=== PATIENT | female | born 1930 | race Caucasian/White ===

== ENCOUNTER 2016-11-05 12:12 | Emergency (ER) | payer OTHER, MEDICARE ==
[~2016-11-05] VITALS: Ht 152.4 cm; Wt 36.3 kg
[~2016-11-05 12:12] MED LIST: AMIODARONE HCL200 MG PO; AZITHROMYCIN250 MG PO; CARDIZEM CD240 MG PO; CORDARONE 200M200 MG PO; DIGOX0.125 MG PO; DILTIAZEM PO; DOCUSATE SODIU100 MG PO; DONEPEZIL HYDROC5 MG PO; EDECRIN 25 MG T25 MG PO; FUROSEMIDE40 MG PO; HYDROXYZINE HCL25 MG PO; HYDROXYZINE HYD25 MG PO; LANOXIN-DIGO0.125 MG PO; LASIX40 MG PO; LISINOPRIL10 MG PO; LOPRESSOR 12.12.5 MG PO; MELATONIN3 MG PO; METOPROLOL TAR100 MG PO; MIRALAX17 GM PO; MONISTAT 72% VAG; POTASSIUM CHLO10 ME1 PO; POTASSIUM CHLO20 ME1 PO; RIVA15T PO; ROZEREM8 MG PO; TYLENOL #31 TAB PO; TYLENOL XSTR500 MG PO; XARELTO15 MG PO; XARELTO20 MG PO; ZITHROMAX Z-PA250 M1 PO
--- NOTE | 2016-11-05 12:17 | ED GI/GU/ABDOMINAL COMPLAINT ---
History of Present Illness General Chief Complaint: Neck/Upper Back Pain/Injury Stated Complaint: BIBA NVD Source: patient, old records, EMS Exam Limitations: clinical condition Vital Signs & Intake/Output Vital Signs & Intake/Output Vital Signs Date Time Temp Pulse Resp B/P B/P Pulse O2 O2 Flow FiO2 Mean Ox Delivery Rate 11/05 1732 97.7 119 16 159/64 96 Room Air 11/05 1636 98.0 108 17 136/82 96 Room Air 11/05 1614 97.7 117 18 183/114 11/05 1606 97.7 117 18 183/114 11/05 1438 84 11/05 1325 97.7 132 16 148/83 97 Room Air 11/05 1218 98 11/05 1217 97.8 130 16 137/91 97 Room Air Allergies Coded Allergies: ampicillin (UNKNOWN - PER PT SON DOES NOT KNOW 07/29/15) Reconcile Medications Acetaminophen (Tylenol Xstr) 500 MG TAB 2 TAB PO PRN PAIN (Reported) Digoxin (Digox) 0.125 MG TAB 1 TAB PO DAILY RAPID AFIB Diltiazem Cd (Cardizem 300 MG Cd) 300 MG CAP 1 TAB PO DAILY HEART RATE DONEPEZIL HCL (Donepezil Hydrochloride) 5 MG TAB 1 TAB PO DAILY memory ( Reported) Furosemide 40 MG TAB 1 TAB PO BID DIURETIC (Reported) Lisinopril 10 MG TABLET 10 MG PO DAILY BP HOLD THIS MED IF SYSTOLIC BP LESS THAN 90 Melatonin 3 MG TAB 1 TAB PO PRN SLEEP (Reported) Metoprolol Tartrate 100 MG TAB 1 TAB PO BID HEART/BP (Reported) Potassium Chloride 10 MEQ TABLET.ER 2 TAB PO DAILY SUPPLEMENT Ramelteon (Rozerem) 8 MG TAB 1 TAB PO QHS insomnia Rivaroxaban (Xarelto) 15 MG TAB 15 MG PO 1700 A-FIB Triage Nurses Notes Reviewed? yes ? N Is pt currently ? No Onset: Abrupt Duration: day(s): (FEW) Timing: single episode today Activities at Onset: none No Modifying Factors: none Associated Symptoms: DIZZINESS HPI: 86 year old female with history of rapid afib presents with weakness, dizziness and unstable gait Reports near fall at home. Uses a walker at home. Complains of frequent urination. She states she called EMS because she could not wait for her son to wake up at home. SHe reports he likes to sleep in. No chest pain or shortness of breath. She did not take her medications at home. Denies feeling any palpitations. Past History Medical History Any Pertinent Medical History? 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 No Review of Systems Review of Systems Constitutional: Denies: chills, fever. EENTM: Reports: no symptoms. Respiratory: Denies: cough, short of breath, sputum production. Cardiovascular: Denies: chest pain, palpitations, peripheral edema. GI: Denies: abdominal pain, nausea, vomiting. Genitourinary: Reports: no symptoms. Musculoskeletal: Reports: no symptoms. Skin: Reports: no symptoms. Neurological/Psychological: Reports: see HPI (DIZZINESS, ATAXIA). Hematologic/Endocrine: Denies: bruising, bleeding, polyuria, polydipsia. Immunologic/Allergic: Denies: splenectomy. All Other Systems: Reviewed and Negative Physical Exam Physical Exam General Appearance: alert, awake, mild distress, thin Head: atraumatic, normal appearance Eyes: Bilateral: normal appearance, PERRL, EOMI. Ears, Nose, Throat, Mouth: hearing grossly normal, moist mucous membrane Neck: normal inspection, supple, full range of motion Respiratory: normal breath sounds, chest non-tender, no respiratory distress Cardiovascular: tachycardia, irregularly irregular Peripheral Pulses: 2+ radial (R), 2+ radial (L) Gastrointestinal: normal bowel sounds, soft, non-tender Back: normal inspection, normal range of motion Extremities: normal range of motion Neurologic/Psych: no motor/sensory deficits, awake, alert, oriented x 3, normal mood/affect Skin: intact, normal color, warm/dry Core Measures ACS in differential dx? Yes ASA ordered for poss ACS? No-ACS ruled out Severe Sepsis Present: No Septic Shock Present: No Progress Differential Diagnosis: RAPID AFIB, ANEMIA, ACS, DEHYDRATION, ELECTROLYTE DISTURBANCE, CVA, TIA, ANXIETY Plan of Care: Orders Procedure Date/time Status Consistent Carbohydrate 1 11/05 D Active Straight Cath 11/05 1256 Active URINALYSIS 11/05 1256 Complete Telemetry/Repairer Switchgear 11/05 1255 Active TROPONIN LEVEL 11/05 1221 Complete PARTIAL THROMBOPLASTIN TIME 11/05 1221 Complete PROTHROMBIN TIME 11/05 1221 Complete LIPASE 11/05 1221 Complete LACTIC ACID 11/05 1221 Complete COMPREHENSIVE METABOLIC PANEL 11/05 1221 Complete CBC WITHOUT DIFFERENTIAL 11/05 1221 Complete EKG 11/05 1220 Active Laboratory Tests 11/05/16 1521: Lactic Acid Cancelled 11/05/16 1338: PT 11.5, INR 1.10, APTT 31 11/05/16 1320: Urinalysis HEAVY H, Urine Color YEL, Urine Clarity HAZY H, Urine pH 7.5, Ur Specific [place] 1.015, Urine Protein TRACE H, Urine Ketones NEG, Urine Nitrite NEG, Urine Bilirubin NEG, Urine Urobilinogen 1.0, Ur Leukocyte Esterase NEG, Ur Microscopic SEDIMENT EXAMINED, Urine RBC FEW H, Ur Epithelial Cells RARE, Urine Bacteria FEW H, Urine Hemoglobin NEG, Urine Glucose NEG 11/05/16 1230: Anion Gap 13, Estimated GFR > 60, BUN/Creatinine Ratio 26.7 H, Glucose 124 H, Lactic Acid 1.0, Calcium 9.2, Total Bilirubin 0.8, AST 27, ALT 36, Alkaline Phosphatase 74, Troponin I < 0.01, Total Protein 7.4, Albumin 4.7, Globulin 2.7, Albumin/Globulin Ratio 1.7, Lipase 24, CBC w Diff NO MAN DIFF REQ, RBC 3.88 L, MCV 96.6, MCH 32.1 H, RDW 13.5, MPV 8.4, Gran % 84.2 H, Lymphocytes % 12.0 L, Monocytes % 3.2, Eosinophils % 0.5, Basophils % 0.1, Absolute Granulocytes 6.4, Absolute Lymphocytes 0.9 L, Absolute Monocytes 0.2, Absolute Eosinophils 0, Absolute Basophils 0, PUBS MCHC 33.2 EKG, TELE MONITOR, LABS ORDERED. NEURO EXAMINATION INTACT. CARDIZEM ORDERED. PATIENT MONITORED IN ED. NO SYMPTOMS. PO HOME MEDS ORDERED. 3:07 PM PATIENT AMBULATORY IN ED WITHOUT DISTRESS. NO CARDIZEM GIVEN BC HEART RATE GOES INT0 80'S AT REST. LABS WNL. WILL GO HOME WITH SON. (ALESSANDRO JENKINS,TAYLOR) Initial ED EKG: RAPID AFIB Rhythm Strip: atrial fibrillation Departure Departure Time of Disposition: 1800 Disposition: HOME OR SELF CARE Condition: Stable Clinical Impression Primary Impression: Atrial fibrillation Referrals: KHURRAM JENKINS,MARK Blanco (PCP/Family) Additional Instructions: FOLLOW UP WITH YOUR DOCTOR IN THE OFFICE RETURN IF WORSE Departure Forms: Customer Survey General Discharge Information Critical Care Note Critical Care Note Critical Care Time: 30-74 min
[2016-11-05 12:44] LABS: ABSOLUTE BASOPHIL COUNT 0 /CUMM (0.0-0.2); ABSOLUTE EOSINOPHIL COUNT 0 /CUMM (0.0-0.7); ABSOLUTE GRANULOCYTE CT 6.4 /CUMM (1.4-6.5); ABSOLUTE LYMPH COUNT 0.9 /CUMM (1.2-3.4); ABSOLUTE MONOCYTE COUNT 0.2 /CUMM (0.10-0.60); BASOPHIL % 0.1 % (0.0-2.0); EOSINOPHIL % 0.5 % (0-5); HEMATOCRIT 37.5 % (37-47); MEAN CORPUSCULAR HGB 32.1 PG (27.0-31.0); MEAN CORPUSCULAR HGB CONC 33.2 G/DL (33.0-37.0); MEAN CORPUSCULAR VOLUME 96.6 FL (81.0-99.0); MEAN PLATELET VOLUME 8.4 FL (7.4-10.4); PLATELET COUNT 228 /CUMM (130-400); RBC DISTRIBUTION WIDTH 13.5 % (11.5-14.5); RED BLOOD CELL CT 3.88 /CUMM (4.20-5.40); WHITE BLOOD CELL COUNT 7.6 /CUMM (4.8-10.8)
[2016-11-05 12:58] LABS: GRANULOCYTE % 84.2 % (42.2-75.2)
[2016-11-05 14:13] LABS: PT 11.5 SEC (9.4-12.5); PTT 31 SEC (25-37)
[2016-11-05 17:32] VITALS: BP 159/64
== END 2016-11-05 18:02 ==
LOC: ERH 12:12
PROVIDERS: Emergency Medicine
DX: I48.91 Unspecified atrial fibrillation (principal); R42 Dizziness and giddiness; R53.1 Weakness; R35.0 Frequency of micturition; I10 Essential (primary) hypertension; I50.9 Heart failure, unspecified; D64.9 Anemia, unspecified
CPT/HCPCS: 81001; 93005; 93010

== ENCOUNTER 2018-02-10 12:53 | Emergency (ER) | payer OTHER, MEDICARE ==
[~2018-02-10] VITALS: Ht 152.4 cm; Wt 49.9 kg
[~2018-02-10 12:53] MED LIST changes: +CARDIZEM CD300 M1 PO; +CARDIZEM60 M1 PO; +DIGOX125 MCG PO; +DILTIAZEM HCL PO; +DONEPEZIL HCL10 M1 PO; +FUROSEMIDE40 M1 PO; +LISINOPRIL10 M1 PO; +LOPRESSOR100 M1 PO; +MELATONIN3 M4 PO; -MELATONIN3 MG PO; +METOPROLOL SUCC25 M1 PO; +POTASSIUM CHLO10 ME5 PO; +ROZEREM8 M1 PO; +TOPROL XL25 M1 PO; +TRAZODONE HCL50 M1 PO; +TYLENOL EXTRA500 M2 PO; -TYLENOL XSTR500 MG PO; +XARELTO15 M1 PO
--- NOTE | 2018-02-10 13:47 | ED GENERAL ADULT ---
History of Present Illness General Chief Complaint: Fall Stated Complaint: FALL W/ HEAD LAC Source: patient Exam Limitations: no limitations Vital Signs & Intake/Output Vital Signs & Intake/Output Vital Signs Date Time Temp Pulse Resp B/P B/P Pulse O2 O2 Flow FiO2 Mean Ox Delivery Rate 02/10 1259 Room Air 02/10 1256 98.0 99 16 106/60 100 Room Air Allergies Coded Allergies: ampicillin (UNKNOWN - PER PT SON DOES NOT KNOW 07/29/15) Reconcile Medications Acetaminophen (Tylenol Extra Strength) 500 MG TABLET 2 TAB PO DAILY PRN PAIN (Reported) Digoxin (Digox) 125 MCG TABLET 1 TAB PO DAILY AFIB (Reported) Diltiazem HCl 60 MG TABLET 1 TAB PO BID HEART/BP (Reported) Donepezil HCl 10 MG TABLET 1 TAB PO DAILY Dementia (Reported) Furosemide 40 MG TABLET 1.5 TAB PO BID WATER RETENTION (Reported) Metoprolol Succ XL (Toprol XL) 25 MG TAB 1 TAB PO QPM HEART/BP (Reported) Metoprolol Succinate 25 MG TAB 2 TAB PO QAM HEART/BP (Reported) Potassium Chloride 10 MEQ TAB.ER.PRT 2 TAB PO DAILY SUPPLEMENT (Reported) Ramelteon (Rozerem) 8 MG TABLET 1 TAB PO QPM SLEEP (Reported) Trazodone HCl 50 MG TABLET 0.5 TAB PO DAILY UNKNOWN (Reported) Triage Note: PT BIBA FROM HOME. EMS REPORTS PT HAD A MECHANICAL TRIP AND FALL WHERE SHE HIT THE BACK OF HER HEAD ON THE FLOOR. PT SUSTAINED A LAC TO THE BACK RIGHT SIDE OF HER HEAD WITH BLEEDING CONTROLLED WITH DRESSING PLACED BY EMS. PT REPORTS TO BE TAKING PLAVIX. DENIES LOC AND IS A&OX3. DENIES NECK/BACK PAIN. Triage Nurses Notes Reviewed? yes HPI: This is an 87-year-old female with history of dementia, A. fib, hypertension, hyperlipidemia, CHF, presented to the emergency department after falling at home. Patient states that she slipped on the slick kitchen floor, fell backwards and struck her head on the floor. She denies any loss of consciousness. She did suffer a laceration to the right occiput. She denies any ongoing pain to her head or her neck. She denies any dizziness, lightheadedness, visual disturbance. She denies any preceding symptoms of lightheadedness or sickness recently. She has had no other recent trauma. She has been compliant with her medications. (Abdi Cooney MD) Past History Travel History Traveled to [place] past 21 day No Medical History Any Pertinent Medical History? 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 No (Abdi Cooney MD) Review of Systems Review of Systems Constitutional: Reports: no symptoms. EENTM: Reports: see HPI. Respiratory: Reports: no symptoms. Cardiovascular: Reports: no symptoms. GI: Reports: no symptoms. Genitourinary: Reports: no symptoms. Musculoskeletal: Reports: no symptoms. Skin: Reports: see HPI. Neurological/Psychological: Reports: see HPI. Hematologic/Endocrine: Reports: no symptoms. Immunologic/Allergic: Reports: no symptoms. (Abdi Cooney MD) Physical Exam Physical Exam General Appearance: well developed/nourished, no apparent distress Comments: Elderly, frail-appearing woman, no acute distress. Curvilinear laceration to the right occiput, 2 cm in length. Does not involve the underlying fascia. No cyst depression. Otherwise atraumatic on exam. Neurologically at baseline with mild disorientation to time but otherwise intact. Moving all extremities. Cardiopulmonary exam unremarkable, abdominal exam benign. Intact pulse movement sensation in all extremities. Core Measures ACS in differential dx? No CVA/TIA Diagnosis: No Sepsis Present: No Sepsis Focused Exam Completed? No (Abdi Cooney MD) Progress Differential Diagnoses I considered the following diagnoses in my evaluation of the patient: Clinically suspect mechanical fall resulting in head laceration. Mild concern for ICH given history of antiplatelet medication. Also mild concern for spinal injury given history of degenerative spinal disease, however lack of neurologic or neck symptoms or suggestive exam findings on exam argue against. Low suspicion for acute metabolic derangement, acute cardiopulmonary process, CVA, severe occult infection at this time. Plan of Care: Orders Procedure Date/time Status CT HEAD WO IV CONTRAST 02/[address] CERV SPINE WO IV CONTRAST 02/10 1327 Active Current Medications Sig/Zeferino Start time Last Medication Dose Stop Time Status Admin Lidocaine 10 ML ONCE ONE 02/10 1400 UNVr (Lidocaine 2%) 02/[address] head, cervical spine, laceration repair, reassessment, likely d/c home. Imaging non-acute, shows: IMPRESSION: 1. No acute intracranial abnormality. 2. Nonspecific partial opacification of the left middle ear and mastoid air cells. 3. Stable appearance of severe degenerative changes in the cervical spine. No fracture or other acute abnormality demonstrated. Patient well appearing on reassessment. Laceration is repaired using 2 heber following extensive cleaning. 2mL of 2% lidocaine infiltrated. Good approximation. Bacitracin applied topically. Patient discharged home with her son. Initial ED EKG: none (Abdi Cooney MD) Departure Departure Time of Disposition: 1510 Disposition: HOME OR SELF CARE Condition: Stable Clinical Impression Primary Impression: Occipital scalp laceration Referrals: Anupam JENKINS,Chrissy Blanco (PCP/Family) Additional Instructions: Thank you for coming to today. There were no obvious injuries on your CAT scan. Your CAT scan does show degenerative changes to spine, which are common with age. For your laceration, we placed 2 heber which will need to be removed in 10 days by your primary doctor or the emergency department or an urgent care center. Please return to the emergency department if you develop any new or worsening symptoms. Departure Forms: Customer Survey General Discharge Information (Abdi Cooney MD) Resident Co-Sign Statement Statement: ED Attending supervision documentation- [] I saw and evaluated the patient. I have also reviewed all the pertinent lab results and diagnostic results. I agree with the findings and the plan of care as documented in the Resident's documentation. [X] I have reviewed the ED Record and agree with the Resident's documentation. [] Additions or exceptions (if any) to the Resident's note and plan are summarized below: [] ([place] JENKINS,Temo Workman) Critical Care Note Critical Care Note Critical Care Time: non-applicable (Abdi Cooney MD)
--- NOTE | 2018-02-10 14:57 | CT SCAN REPORT ---
EXAMINATION: CT HEAD WITHOUT CONTRAST CT CERVICAL SPINE WITHOUT CONTRAST CLINICAL INFORMATION: Status post fall with head injury. Blunt trauma. Scalp laceration. COMPARISON: 12/21/2015. TECHNIQUE: Axial sequential CT imaging was obtained through the head. Axial multidetector volumetric acquisition was obtained through the cervical spine. Images were reconstructed in the sagittal and coronal plane at the acquisition workstation. DLP: Head: 587.70 mGy-cm. Cervical spine: 245.80 mGy-cm. FINDINGS: Cranial CT Scan: No acute abnormality is demonstrated. No intracranial hemorrhage or contusion is demonstrated. Normal uribe-white matter differentiation is preserved. Diffuse age-related atrophy is stable with prominence of the ventricles and cortical sulci. Stable periventricular low-attenuation consistent with chronic small-vessel ischemic disease. No territorial infarction, mass lesion or other abnormality is seen. Scalp laceration is noted in the posterior right parietal region. No other soft tissue abnormality. No fracture or other acute bony abnormality is seen. There is partial opacification of the left middle ear and mastoids, nonspecific. Visualized portions of the paranasal sinuses are clear. A rectangular low-attenuation structure along the lateral aspect of the right globe is unchanged and presumably related to previous surgical procedure. 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 Severe degenerative disc disease is present at C5-C6 and C6-C7. There is minimal anterolisthesis of C7 on T1. There is severe degenerative disc disease at T1-T2 with grade 1 anterolisthesis. There is multilevel facet arthropathy. The thyroid gland is mildly enlarged and heterogeneous without focal abnormality demonstrated. IMPRESSION: 1. No acute intracranial abnormality. 2. Nonspecific partial opacification of the left middle ear and mastoid air cells. 3. Stable appearance of severe degenerative changes in the cervical spine. No fracture or other acute abnormality demonstrated.
[2018-02-10 16:36] VITALS: BP 147/96
== END 2018-02-10 16:41 ==
LOC: ERH 12:53
DX: S01.01XA Laceration without foreign body of scalp, initial encounter (principal); W01.0XXA Fall on same level from slipping, tripping and stumbling without subsequent striking against object, initial encounter; Y92.000 Kitchen of unspecified non-institutional (private) residence as the place of occurrence of the external cause; Y93.9 Activity, unspecified; I48.91 Unspecified atrial fibrillation; I50.9 Heart failure, unspecified; E78.5 Hyperlipidemia, unspecified
CPT/HCPCS: J2001